=== PATIENT | female | born 1985 | race Caucasian/White ===

== ENCOUNTER 2019-07-29 09:01 | Emergency (ER) | payer OTHER ==
[~2019-07-29] VITALS: Ht 175.3 cm; Wt 90.7 kg
[2019-07-29] MEDS ORDERED: LORA1 PO (09:14)
[2019-07-29] MEDS ORDERED: Lexapro20 MG PO (09:14)
[2019-07-30 02:06] LABS: HCV ANTIBODY <0.1 (0.0-0.9); HIV SCREEN 4TH GENERATION WRFX Non Reactive (Non Reactive)
== END 2019-07-29 10:33 | disposition home or self-care (01) ==
LOC: ER 09:01
PROVIDERS: Physician Assistant
DX: S61.031A Puncture wound without foreign body of right thumb without damage to nail, initial encounter (principal); Z88.2 Allergy status to sulfonamides; Z91.040 Latex allergy status; Z88.5 Allergy status to narcotic agent; Z79.899 Other long term (current) drug therapy; W46.1XXA Contact with contaminated hypodermic needle, initial encounter
CPT/HCPCS: 84460; 86317; 86803; 87389; 99282